=== PATIENT | female | born 1985 | race Caucasian/White ===

== ENCOUNTER 2020-07-25 17:13 | Emergency (ER) | payer OTHER, SELFPAY ==
[2020-07-25 17:21] VITALS: BP 133/69; PULSE 105; RESP 20; TEMP 36.2; O2SAT 97
--- NOTE | 2020-07-25 18:29 | ED.LOWEXIN ---
HPI - Extremity Injury (Lower) General Chief Complaint: Extremity Injury, Lower Stated Complaint: left leg/hip pain Time Seen by Provider: 07/25/20 17:25 Source: patient Mode of arrival: ambulatory Limitations: no limitations History of Present Illness HPI Narrative: Patient is a 35-year-old female who presents to emergency department for evaluation of left buttock pain radiating to the thighs been present for 1 week notes aching burning pain nothing is made it better or worse patient denies similar occurrence in the past presents in no distress has tried [id number] medications with minimal improvement Related Data Home Medications Medication Instructions Recorded Confirmed buspirone 10 mg PO BID 07/25/20 07/25/20 drospirenone (contraceptive) 07/25/20 [Slynd] Allergies Allergy/AdvReac Type Severity Reaction Status Date / Time No Known Drug Allergies Allergy Mild Unknown Verified 07/25/20 17:38 Review of Systems Review of Systems: All systems reviewed & are unremarkable except as noted in HPI and below PMFSH Social History Social History (Updated 07/25/20 @ 18:30 by Deonte Turner PA-C) Smoking status: Current every day smoker Exam Narrative: Exam Narrative: GENERAL: Well-appearing, well-nourished, and in no acute distress. HEAD: Normocephalic, atraumatic. EYES: PERRLA and EOMI. ENT: Nares clear, no rhinorrhea or epistaxis. Mucous membranes moist. CHEST: Clear to auscultation. No respiratory distress. No wheezes rales or rhonchi HEART: Regular rate and rhythm. No murmur heard. Normal peripheral pulses. ABDOMEN: Soft, nontender, nondistended EXTREMITIES: Normal range of motion. No edema. Tenderness of the left SI joint remainder of left lower extremity nontender no deformity. No midline lumbar tenderness SKIN: Warm, dry, no rash. NEURO: No focal deficits. Alert and oriented x3. Cranial nerves II through XII grossly intact PSYCH: Normal mood and affect. Course Course Emergency Course: Patient in the room aware of case findings treatment plan and diagnosis agreeing to follow-up as directed or to return if symptoms worsen or concerns Vital Signs Vital signs: Vital Signs Temperature 97.1 F L 07/25/20 17:21 Pulse Rate 105 H 07/25/20 17:21 Respiratory Rate 20 07/25/20 17:21 Blood Pressure 133/69 07/25/20 17:21 Pulse Oximetry 97 07/25/20 17:21 Temperature 97.1 F L 07/25/20 17:21 Pulse Rate 105 H 07/25/20 17:21 Respiratory Rate 20 07/25/20 17:21 Blood Pressure 133/69 07/25/20 17:21 Pulse Oximetry 97 07/25/20 17:21 MDM - Extremity Injury (Lower) MDM Narrative Medical decision making narrative: Patients pain is positional in nature and localized to back without signs of cord compression or cauda equina based on neurological exam, skeletal exam and history. No fever or other significant factors to suggest osteomyelitis or spinal epidural abscess. No symptoms or signs to suggest pain is referred from abdominal or / cardiopulmonary sources. No pulsatile masses noted on exam. Patient ambulates with steady gait and is stable for outpatient management given case findings. Discharge Plan Discharge Clinical Impression: Left leg pain Patient Disposition: Home, Self-Care Condition: Stable Instructions: Antibiotic Form, Leg Pain (ED) Additional Instructions: Medications as needed and prescribed. Limit lifting and bending. You may apply heat or cold to the area as needed. Follow up with your doctor for further care. Contact your doctor or return to the emergency department if you develop problems with bladder or bowel function, weakness or loss of feeling in one or both of your legs, chest pain, feeling like you may pass out, shortness of breath, fever over 100.4, vomiting, blood in your urine or stool, any redness swelling or increasing pain in the extremity or any other serious concerns. Prescriptions: New ibuprofen [IBU] 600 mg tablet 60
[2020-07-25 18:52] VITALS: BP 120/66; PULSE 66; RESP 20; TEMP 36.7; O2SAT 99
== END 2020-07-25 18:53 | disposition home or self-care (01) ==
PROVIDERS: Emergency Provider Emergency Medicine; PCP Internal Medicine Gastroenterology
DX: M79.652 Pain in left thigh (principal); F17.210 Nicotine dependence, cigarettes, uncomplicated
CPT/HCPCS: 99283

== ENCOUNTER 2020-08-18 12:52 | Outpatient (CLI) | payer OTHER, SELFPAY ==
--- NOTE | ~2020-08-18 | XR_ITS ---
LUMBAR SPINE INDICATION: TECHNIQUE: views lumbar spine COMPARISON: None FINDINGS: No fracture, subluxation or dislocation. There is grade 1 spondylolisthesis at L5-S1. Sacra l foramen are symmetric. Vertebral bodies and disk spaces are preserved. IMPRESSION: 1: No acute abnormality of the lumbar spine identified. 2: Grade 1 spondylolisthesis at L5-S1. Reviewed, dictated and finalized at location B.
== END 2020-08-18 12:53 | disposition home or self-care (01) ==
LOC: ANHIMG 12:57
PROVIDERS: PCP Internal Medicine Gastroenterology; Visit Provider Internal Medicine Gastroenterology
DX: M54.5 Low back pain (principal)
CPT/HCPCS: 72100

== ENCOUNTER 2021-02-16 18:31 | Emergency (ER) | payer OTHER, SELFPAY ==
--- NOTE | ~2021-02-16 | XR_ITS ---
[XR ribs RT 2V w CXR 2V ] INDICATION: Right posterior rib pain TECHNIQUE: Frontal projection of the upper right ribs, frontal projection of the lower right ribs, ob lique projection of all the right ribs, frontal inspiratory chest x-ray for interpretation. FINDINGS: There are no displaced rib fractures identified. There are no soft tissue abnormality see n. The lungs are clear. IMPRESSION: 1:No displaced rib fractures. Reviewed, dictated and finalized at location A.
[2021-02-16 19:37] VITALS: BP 127/74; PULSE 100; RESP 18; TEMP 36.6; O2SAT 100
[2021-02-16 19:54] VITALS: BP 134/84; PULSE 97; RESP 17; O2SAT 97
[2021-02-16] MEDS: KETOROLAC (*BKC) 60 MG/2 ML VIAL IM (21:00)
[2021-02-16] MEDS: CYCLOBENZAPRINE HCL 10 MG TABLET PO (21:00)
[2021-02-16] MEDS: ACETAMINOPHEN 500 MG TABLET 1000 MG PO (21:00)
[2021-02-16 21:02] VITALS: BP 138/89; PULSE 92; RESP 18; O2SAT 99
--- NOTE | 2021-02-16 21:03 | PC.NURSE ---
Pt to XRAY via w/c.
--- NOTE | 2021-02-16 21:21 | ED.BACK ---
HPI - Back Pain/Injury General Chief Complaint: Back Pain/Injury Stated Complaint: worsening back pain Time Seen by Provider: 02/16/21 20:07 Source: patient Mode of arrival: ambulatory Limitations: no limitations History of Present Illness HPI Narrative: This is a 35-year-old female that presents the emergency department for chronic back pain. Reports this has been ongoing for years. Reports over the last month she has been seeing a primary doctor for this. Today the pain is mainly at her right mid back. Is worse with movement. No recent injury or trauma. Denies fever, decreased range of motion or numbness. Related Data Home Medications Medication Instructions Recorded Confirmed buspirone 10 mg PO BID 07/25/20 07/25/20 drospirenone (contraceptive) 07/25/20 [Slynd] Allergies Allergy/AdvReac Type Severity Reaction Status Date / Time No Known Drug Allergies Allergy Mild Unknown Verified 02/16/21 19:56 Review of Systems Review of Systems: Narrative: CONSTITUTIONAL: Denies fever MUSCULOSKELETAL: Reports back pain, joint pain, and myalgia. NEUROLOGIC: Denies numbness, or weakness. All systems reviewed & are unremarkable except as noted in HPI and below PMFSH Past Medical History Medical History (Updated 02/16/21 @ 22:24 by Estephania Voss PA-C) History of depression Social History Social History (Updated 07/25/20 @ 18:30 by Deonte Turner PA-C) Smoking status: Current every day smoker Exam Narrative: Exam Narrative: GENERAL: Well-appearing, well-nourished, and in no acute distress. HEAD: Normocephalic, atraumatic. EYES: EOMI. ENT: Mucous membranes moist. Oropharynx without tonsillar hypertrophy exudate or other lesions. CHEST: Clear to auscultation. No respiratory distress. No wheezes rales or rhonchi HEART: Regular rate and rhythm. No murmur heard. Normal peripheral pulses. BACK: No midline spinal tenderness. Tender to palpation of the right thoracic paraspinal musculature EXTREMITIES: Normal range of motion. No edema. SKIN: Warm, dry, no rash. NEURO: No focal deficits. Alert and oriented x3. PSYCH: Normal mood and affect Course Vital Signs Vital signs: Vital Signs Temperature 97.9 F 02/16/21 19:37 Pulse Rate 100 02/16/21 19:37 Respiratory Rate 18 02/16/21 19:37 Blood Pressure 127/74 02/16/21 19:37 Pulse Oximetry 100 02/16/21 19:37 Temperature 97.9 F 02/16/21 19:37 Pulse Rate 87 02/16/21 22:15 Respiratory Rate 16 02/16/21 22:15 Blood Pressure 136/89 02/16/21 22:15 Pulse Oximetry 100 02/16/21 22:15 MDM - Back Pain/Injury MDM Narrative Medical decision making narrative: Patient presents the emergency department for right-sided mid back pain. No known injury or trauma. Vitals are normal. Tender palpation of the right thoracic paraspinal musculature. Right-sided rib/chest x-ray is without acute findings. Patient given dose of Toradol, Tylenol and Flexeril with relief. She is stable and felt appropriate for further outpatient evaluation. She was given warnings to return to the ER Imaging Data Radiologist's impression: ITS Impressions Ribs w/Chest X-Ray 02/16/21 21:20 IMPRESSION: 1:No displaced rib fractures. Critical Care Time Critical Care Time Critical Care Time: No Discharge Plan Discharge Clinical Impression: Acute right-sided thoracic back pain Patient Disposition: Home, Self-Care Condition: Stable Instructions: Back Pain (ED) Additional Instructions: Return to the ER if you experience fever, weakness, numbness, bowel/bladder incontinence, or any other symptoms that are concerning to you Rest, use ice/heat, take anti-inflammatories (Aleve, Ibuprofen, Naproxen, etc) or Tylenol as needed for pain as well as muscle relaxer (Flexeril) as needed for pain. Muscle relaxers can make you drowsy, do not drive if you take this Follow up with your primary care doctor Prescriptions: New cyclobenzaprine
[2021-02-16 22:15] VITALS: BP 136/89; PULSE 87; RESP 16; O2SAT 100
== END 2021-02-16 22:33 | disposition home or self-care (01) ==
PROVIDERS: Emergency Provider Emergency Medicine; PCP Physician Assistant
DX: M54.6 Pain in thoracic spine (principal); G89.29 Other chronic pain; F32.9 Major depressive disorder, single episode, unspecified; F17.200 Nicotine dependence, unspecified, uncomplicated
CPT/HCPCS: 71046; 71100; 96372; 99283; A9270; J1885

== ENCOUNTER 2021-08-29 13:07 | Emergency (ER) | payer OTHER, SELFPAY ==
[2021-08-29] VITALS (25 sets, daily range): BP systolic 95–127; BP diastolic 48–88; PULSE 70–100; RESP 10–27; TEMP 36.8–36.9; O2SAT 96–100
--- NOTE | 2021-08-29 13:40 | ED.GENADULT ---
HPI - General Adult General Chief complaint: Allergic Reaction Stated complaint: allergic reaction Time Seen by Provider: 08/29/21 13:24 History of Present Illness HPI narrative: Patient is a 36-year-old female who presents ER with concerns for allergic reaction. She awoke this morning with a swollen lower lip and she is also itching over the posterior aspect of her neck, her ears, and down her right arm. No difficulty breathing or swallowing. She reports she took some Pepto-Bismol last night and she thinks that is what caused this. She denies taking any additional medications. She did take some Benadryl after the symptoms started which did not help. Related Data Home Medications Medication Instructions Recorded Confirmed buspirone 10 mg PO BID 07/25/20 07/25/20 drospirenone (contraceptive) 07/25/20 [Slynd] Allergies Allergy/AdvReac Type Severity Reaction Status Date / Time No Known Drug Allergies Allergy Mild Unknown Verified 08/29/21 13:40 Review of Systems Review of Systems: All systems reviewed & are unremarkable except as noted in HPI and below Constitutional: Constitutional: Denies chills, Denies fever(s) and Denies weakness ENT: Denies dysphagia, Denies nasal congestion and Denies sore throat Cardiovascular: Cardiovascular: Denies chest pain, Denies rapid heart rate and Denies radiating jaw, neck or arm pain Respiratory: Respiratory: Denies cough and Denies dyspnea Gastrointestinal: Gastrointestinal: Denies nausea and Denies vomiting Integumentary/Breasts: Skin/Breast: Reports pruritus and Reports rash PMFSH Past Medical History Medical History (Updated 08/29/21 @ 16:00 by Harvinder Zamora MD) History of depression Surgical History Surgical History (Updated 08/29/21 @ 13:41 by Harvinder Zamora MD) History of laparoscopy Social History Social History (Updated 07/25/20 @ 18:30 by Deonte Turner PA-C) Smoking status: Current every day smoker Exam Narrative: GENERAL: Well-appearing, well-nourished, and in no acute distress. HEAD: Normocephalic, atraumatic. EYES: PERRL and EOMI. ENT: Mucous membranes moist. Edema of the lower lip without angioedema of the tongue or upper lip. Normal-appearing posterior oropharynx. CHEST: Clear to auscultation. No respiratory distress. HEART: Regular rate and rhythm. Normal peripheral pulses. ABDOMEN: Soft, nontender, nondistended. EXTREMITIES: Normal range of motion. No edema. SKIN: Warm, dry, urticaria proximal right arm with excoriations. NEURO: Alert and oriented x3. PSYCH: Normal mood and affect. Course Course Emergency Course: Decreased itching and swelling of lip with Benadryl/Pepcid/Solu-Medrol IV. Discharge home with scheduled antihistamines and daily prednisone. Recommend discontinuing any use of Pepto-Bismol. Vital Signs Vital signs: Vital Signs Pulse Rate 87 08/29/21 13:58 Respiratory Rate 14 08/29/21 13:58 Pulse Oximetry 99 08/29/21 13:58 Temperature 98.2 F 08/29/21 13:59 Pulse Rate 76 08/29/21 15:02 Respiratory Rate 21 H 08/29/21 15:02 Blood Pressure 108/70 08/29/21 15:01 Pulse Oximetry 97 08/29/21 15:02 Medical Decision Making Vital Signs Vital Signs: Vital Signs Pulse Rate 87 08/29/21 13:58 Respiratory Rate 14 08/29/21 13:58 Pulse Oximetry 99 08/29/21 13:58 Temperature 98.2 F 08/29/21 13:59 Pulse Rate 76 08/29/21 15:02 Respiratory Rate 21 H 08/29/21 15:02 Blood Pressure 108/70 08/29/21 15:01 Pulse Oximetry 97 08/29/21 15:02 Discharge Plan Discharge Clinical Impression: Allergic reaction Patient Disposition: Home, Self-Care Condition: Stable Instructions: General Allergic Reaction (ED) Additional Instructions: You had an allergic reaction to Pepto-Bismol which contains salicylate. You may also potentially have reactions to aspirin-containing products. Return to the ER if you cannot breathe, you cannot keep down food or water, y
[2021-08-29] MEDS: diphenhydrAMINE HCl INJ 50 MG/ML VIAL 25 MG IV PUSH (13:46)
[2021-08-29] MEDS: FAMOTIDINE 20 MG/2 ML VIAL IV PUSH (13:46)
[2021-08-29] MEDS: methylPREDNISolone SOD SUCC 125 MG VIAL IV PUSH (13:47)
--- NOTE | 2021-08-29 15:14 | PC.NURSE ---
Pt was sleeping, lips swelling improved but not subsided. No requests at this time. VSS, will continue to monitor.
== END 2021-08-29 16:40 | disposition home or self-care (01) ==
PROVIDERS: Emergency Provider Emergency Medicine; PCP Physician Assistant
DX: T78.40XA Allergy, unspecified, initial encounter (principal); F32.9 Major depressive disorder, single episode, unspecified
CPT/HCPCS: 96374; 96375; 99284; J1200; J2930

== ENCOUNTER 2021-10-28 22:07 | Emergency (ER) | payer OTHER, SELFPAY ==
[2021-10-28 22:32] VITALS: BP 126/72; PULSE 112; RESP 18; TEMP 36.7; O2SAT 97
[2021-10-28 23:49] VITALS: BP 106/73; PULSE 89; TEMP 36.8; O2SAT 99
--- NOTE | 2021-10-28 23:50 | ED.GENADULT ---
HPI - General Adult General Chief complaint: Unspecified Stated complaint: Needs tested for Covid Time Seen by Provider: 10/28/21 23:09 History of Present Illness HPI narrative: 36-year-old female presenting to the emergency department for evaluation of body aches cough fatigue. Patient is seaking Covid testing. Patient did have exposure to Covid on Friday. Patient began experiencing symptoms yesterday. Patient describes having cough body ache and fatigue. Patient has been taking Tylenol for fever and for pain control. Related Data Home Medications Medication Instructions Recorded Confirmed buspirone 10 mg PO BID 07/25/20 07/25/20 drospirenone (contraceptive) 07/25/20 [Slynd] Allergies Allergy/AdvReac Type Severity Reaction Status Date / Time bismuth subsalicylate Allergy Swelling Verified 10/29/21 00:35 [From Pepto-Bismol] of Lip/Tongue/Throat Review of Systems Review of Systems: CONSTITUTIONAL: Subjective fever and chills EYES: Denies visual changes, redness, or discharge. ENT: Denies rhinorrhea, congestion, sore throat, or otalgia. CARDIOVASCULAR: Denies chest pain, palpitations, or edema. RESPIRATORY: Cough and shortness of breath GASTROINTESTINAL: Denies abdominal pain, nausea, vomiting, or diarrhea. GENITOURINARY: Denies dysuria or hematuria. SKIN: Denies rash or itching. MUSCULOSKELETAL: Denies back pain, joint pain, or myalgia. NEUROLOGIC: Denies headache, numbness, or weakness. PSYCHIATRIC: Denies anxiety or depression. [facility] Past Medical History Medical History (Updated 10/30/21 @ 00:00 by Kayley Guzman) History of depression Surgical History Surgical History (Updated 08/29/21 @ 13:41 by Harvinder Zamora MD) History of laparoscopy Social History Social History (Updated 07/25/20 @ 18:30 by Deonte Turner PA-C) Smoking status: Current every day smoker Exam Narrative: APPEARANCE: Well appearing, no pain in distress, well-nourished. HEAD: normocephalic, atraumatic. EYES: PERRLA/EOMI, conjunctivae clear. NOSE: Nasal congestion NECK: Supple. No adenopathy, no masses. RESPIRATORY: Airway patent, respirations nonlabored. Clear to auscultation bilaterally, no rales, rhonchi, wheezing. CARDIOVASCULAR: Regular rate and rhythm without murmurs rubs or gallops. ABDOMINAL: Soft, nontender, nondistended, normal bowel sounds MUSCULOSKELETAL: Moves all extremities. Strength/ROM intact, No edema, No calf tenderness. NEURO: Alert. Cranial nerves II through XII intact. Good gait. Good coordination SKIN: Warm, dry. Normal Color PSYCHIATRIC: Normal affect/mood. Course Vital Signs Vital signs: Vital Signs Temperature 98.1 F 10/28/21 22:32 Pulse Rate 112 H 10/28/21 22:32 Respiratory Rate 18 10/28/21 22:32 Blood Pressure 126/72 10/28/21 22:32 Pulse Oximetry 97 10/28/21 22:32 Temperature 98.3 F 10/28/21 23:49 Pulse Rate 89 10/28/21 23:49 Respiratory Rate 18 10/28/21 22:32 Blood Pressure 106/73 10/28/21 23:49 Pulse Oximetry 99 10/28/21 23:49 Medical Decision Making Vital Signs Vital Signs: Vital Signs Temperature 98.1 F 10/28/21 22:32 Pulse Rate 112 H 10/28/21 22:32 Respiratory Rate 18 10/28/21 22:32 Blood Pressure 126/72 10/28/21 22:32 Pulse Oximetry 97 10/28/21 22:32 Temperature 98.3 F 10/28/21 23:49 Pulse Rate 89 10/28/21 23:49 Respiratory Rate 18 10/28/21 22:32 Blood Pressure 106/73 10/28/21 23:49 Pulse Oximetry 99 10/28/21 23:49 Lab Data Lab results reviewed: Yes I reviewed the patient's lab results. Labs: Lab Results 10/29/21 Range/Units 00:33 SARS-CoV-2 RNA (RT-PCR) Positive A Influenza A Screen Negative Reference Range: Negative Influenza B Screen Negative Reference Range: Negative Discharge Plan Discharge Clinical Impression: Acute viral s
[2021-10-29 13:42] LABS: SARS-CoV-2 RNA PCR Positive
== END 2021-10-29 01:12 | disposition home or self-care (01) ==
PROVIDERS: Emergency Provider Emergency Medicine; PCP Physician Assistant
DX: U07.1 COVID-19 (principal); F17.200 Nicotine dependence, unspecified, uncomplicated
CPT/HCPCS: 87804; 99283; C9803; U0003; U0005

== ENCOUNTER 2022-03-22 10:25 | Emergency (ER) | payer OTHER, SELFPAY ==
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
[2022-03-22 10:27] VITALS: BP 101/57; PULSE 101; RESP 18; TEMP 36.6; O2SAT 98
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
[2022-03-22 12:17] LABS: Appearance Urine Slightly Cloudy (Clear); Color Urine Yellow (Yellow); pH Urine 5.5 (5.0-9.0)
[2022-03-22 12:18] LABS: Protein Urine 1+ mg/dL (Negative); Specific Grav Ur >= 1.030 (1.001-1.035)
[2022-03-22 12:19] LABS: Bilirubin Urine Negative (Negative); Blood Urine 2+ (Negative); Glucose Urine UA Negative (Negative); Ketones Urine Negative (Negative); Nitrate Urine Negative (Negative); Urobilinogen Urine 0.2 mg/dL (<2.0)
[2022-03-22 12:20] LABS: Add Urine Microscopic? YES; Leukocyte Esterase Ur Trace LEU/UL (Negative)
[2022-03-22 12:34] LABS: Mucus Urine Few /lpf; Squamous Epithelial Cell Urine Many /hpf (Few)
== END 2022-03-22 13:58 | disposition home or self-care (01) ==
PROVIDERS: Physician Assistant; Emergency Provider Emergency Medicine; PCP Physician Assistant
DX: R31.21 Asymptomatic microscopic hematuria (principal); M16.0 Bilateral primary osteoarthritis of hip; F32.9 Major depressive disorder, single episode, unspecified
CPT/HCPCS: 72192; 73080; 81001; 81025; 87086; 87088; 99284

== ENCOUNTER 2022-04-16 00:32 | Emergency (ER) | payer OTHER, SELFPAY ==
[2022-04-16 00:39] VITALS: BP 129/75; PULSE 85; RESP 20; TEMP 36.6; O2SAT 99
[2022-04-16 00:55] VITALS: O2SAT 96
[2022-04-16 01:37] LABS: SARS-CoV-2 RNA PCR Positive
--- NOTE | 2022-04-16 01:43 | ED.URI ---
HPI - URI/Sore Throat General Chief Complaint: Upper Respiratory Infection <Merari Guidry PA-C - Last Filed: 04/16/22 02:04> Stated Complaint: COVId exposure, req testing <LENORA Reyna Last Filed: 04/16/22 02:04> Time Seen by Provider: 04/16/22 00:49 <LENORA Reyna Last Filed: 04/16/22 02:04> Source: patient <LENORA Reyna Last Filed: 04/16/22 02:04> Mode of arrival: ambulatory <LENORA Reyna Last Filed: 04/16/22 02:04> Limitations: no limitations <LENORA Reyna Last Filed: 04/16/22 02:04> History of Present Illness HPI Narrative: Patient is 37-year-old female who presents the ED with report of COVID exposure. Patient reports she was exposed to someone with COVID-19 at work last Friday. She began to have a slight headache on Friday, but did not think much of this. She reports of the last 2 days she has had sinus congestion, headache, postnasal drip. She denies any significant cough. No fever, chills, abdominal pain, difficulty breathing, chest pain, nausea, vomiting, sore throat. She has been using [id number] cough and cold medications. She presented tonight because she would like to get tested for COVID-19. She has not vaccinated. <Merari Guidry PA-C - Last Filed: 04/16/22 02:04> Related Data Home Medications: Home Medications Medication Instructions Recorded Confirmed buspirone 10 mg tablet 10 mg PO BID 07/25/20 07/25/20 drospirenone (contraceptive) 4 mg 07/25/20 (28) tablet (Slynd) <LENORA Reyna Last Filed: 04/16/22 02:04> Allergies/Adverse Reactions: Allergies Allergy/AdvReac Type Severity Reaction Status Date / Time bismuth subsalicylate Allergy Swelling Verified 03/22/22 10:30 [From Pepto-Bismol] of Lip/Tongue/Throat <Merari Guidry PA-C - Last Filed: 04/16/22 02:04> Review of Systems Review of Systems: CONSTITUTIONAL: Denies fever, chills. ENT: Reports sinus congestion, PND. Denies sore throat. CARDIOVASCULAR: Denies chest pain. RESPIRATORY: Denies cough or dyspnea. GASTROINTESTINAL: Denies abdominal pain, nausea, vomiting. NEUROLOGIC: Reports LEBLANC. Denies numbness, or weakness. <Merari Guidry PA-C - Last Filed: 04/16/22 02:04> All systems reviewed & are unremarkable except as noted in HPI and below <Merari Guidry PA-C - Last Filed: 04/16/22 02:04> PMFSH Past Medical History Medical History: Medical History History of depression <Merari Guidry PA-C - Last Filed: 04/16/22 02:04> Surgical History Surgical History: Surgical History History of laparoscopy <Merari Guidry PA-C - Last Filed: 04/16/22 02:04> Social History Social History: Social History Smoking status: Current every day smoker <Merari Guidry PA-C - Last Filed: 04/16/22 02:04> Exam Narrative: GENERAL: Well appearing, well-nourished, non-toxic, in no acute distress. HEAD: Normocephalic, atraumatic. THROAT: Pharynx clear, no exudate. MMs moist. NECK: Supple. No adenopathy, no masses. RESPIRATORY: Airway patent, respirations nonlabored. Clear to auscultation bilaterally, no rales, rhonchi, wheezing. CARDIOVASCULAR: Regular rate and rhythm without murmurs, rubs, or gallops. Radial pulses 2+ and equal bilaterally. MUSCULOSKELETAL: Moves all extremities. Strength/ROM intact without gross deformities. SKIN: Warm, dry, normal color. No rashes. NEURO: A&O X3. Speech clear. Cranial nerves II-XII grossly intact. Steady gait. No ataxic movements. PSYCHIATRIC: Appropriate mood and affect. Normal interaction. <Merari Guidry PA-C - Last Filed: 04/16/22 02:04> Course RN TELE/PA Physician Supervision For this patient encounter, I reviewed the RN TELE or PA documentation, treatment plan, and medical decision making <Tod
== END 2022-04-16 02:05 | disposition home or self-care (01) ==
PROVIDERS: Physician Assistant; Emergency Provider Emergency Medicine; PCP Physician Assistant
DX: U07.1 COVID-19 (principal); Z28.310 Unvaccinated for COVID-19; F32.A Depression, unspecified
CPT/HCPCS: 99283; C9803; U0003; U0005